=== PATIENT | male | born 1995 ===

== ENCOUNTER 2017-01-19 02:29 | Emergency (ER) | payer OTHER ==
[2017-01-19 02:47] VITALS: BP 130/73; PULSE 86; RESP 20; TEMP 97.6
[2017-01-19] MEDS ORDERED: Tetracaine 0.5% Ophth (OR ONLY) ONE (03:06)
--- NOTE | 2017-01-19 03:09 | C.PDOC ---
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 Patient states that after the liquid splashed in his eye he irrigated it at an eyewash station and applied a topical cream around the area afterwards. Patient is complaining of irritation around his right eye. Patient reports he does not wear protective eyewear at work and does not use glasses/contact lenses. Patient denies change in vision or other injuries. Time Seen by Provider: 01/19/17 02:53 Chief Complaint (Nursing): Eye Problem History Per: Patient History/Exam Limitations: no limitations Onset/Duration Of Symptoms: Hrs Current Symptoms Are (Timing): Still Present Quality: Other (Irritation) Wears Contact Lens?: No Associated Symptoms: Pain. denies: Decreased Vision, Swelling, FB Sensation, Discharge From Eye Recent travel outside of the [place]: No Past Medical History Reviewed: Historical Data, Nursing Documentation, Vital Signs Vital Signs: Last Vital Signs Temp 97.6 F 01/19/17 04:03 Pulse 86 01/19/17 04:03 Resp 20 01/19/17 04:03 BP 130/73 01/19/17 04:03 Pulse Ox 98 01/19/17 04:03 - Medical History PMH: No Chronic Diseases Surgical History: No Surg Hx Family History: States: Unknown Family Hx - Social History Hx Alcohol Use: No Hx Substance Use: No Review Of Systems Eyes: Positive for: Pain, Redness. Negative for: Vision Change Physical Exam - Physical Exam Appears: Non-toxic, No Acute Distress Skin: Normal Color, Warm, Dry Head: Atraumatic, Normacephalic Eye(s): bilateral: Normal Inspection, PERRL, EOMI, right: Other (Conjunctival injection. No eyelid swelling, no erythema, no blisters or skin changes) Nose: Normal Oral Mucosa: Moist Lips: Normal Appearing Neck: Normal ROM Chest: Symmetrical Extremity: Bilateral: Atraumatic, Normal Color And Temperature, Normal ROM Neurological/Psych: Oriented x3, Normal Speech, Other (No focal deficits) Gait: Steady ED Course And Treatment O2 Sat by Pulse Oximetry: 100 (Room air) Pulse Ox Interpretation: Normal Medical Decision Making Medical Decision Making: Impression: 21 year old male with minimal griffith around right eye. Plan: * Erythromycin * Tetracaine Tetracaine was applied to right eye and eye was thoroughly irrigated with saline 200mL. Erythromycin was applied to area surrounding eye. Patient reports relief. Patient to be discharged and recommend analgesics as needed. May follow up with optho Disposition Counseled Patient/Family Regarding: Need For Followup - Disposition Referrals: [facility] [Outside] [facility] [Outside] Hernan Tuttle MD [Staff Provider] - Disposition: HOME/ ROUTINE Disposition Time: 04:00 Condition: GOOD Additional Instructions: Por favor tome Advil o Tylenol para dolor Vaya a el [facility]ico del [facility] para mas evaluacion Instructions: Acute Wound Care (ED) Forms: [employer] (Al[place]ian) Print Language: KOREAN - POA Present On Arrival: None - Clinical Impression Clinical Impression: Eye irritation - PA / [employer]UM[employer]ER [employer] / Resident Statement MD/DO has reviewed & agrees with the documentation as recorded. - Scribe Statement The provider has reviewed the documentation as recorded by the Scribe Jose Kelly All medical record entries made by the Scribe were at my direction and personally dictated by me. I have reviewed the chart and agree that the record accurately reflects my personal performance of the history, physical exam, medical decision making, and the department course for this patient. I have also personally directed, reviewed, and agree with the discharge instructions and disposition.
[2017-01-19] MEDS ORDERED: Erythromycin 0.5% Ophth Oint 1 APPLIC/3.5 G OD STA (03:17)
[2017-01-19 06:35] VITALS: O2SAT 100
== END 2017-01-19 04:03 | disposition home or self-care (01) ==
LOC: C.ER 02:29
DX: H57.8 Other specified disorders of eye and adnexa (principal)